=== PATIENT | female | born 1985 | race American Indian/Alaskan Native ===

== ENCOUNTER 2019-03-22 00:29 | Emergency (ER) | payer OTHER ==
[2019-03-22] MEDS ORDERED: IBUPROFEN PO ONE (03:03)
[2019-03-22] MEDS ORDERED: FLEXERIL PO ONE (03:04)
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
[2019-03-22 05:08] VITALS: BP 123/83
== END 2019-03-22 04:30 | disposition home or self-care (01) ==
LOC: ED 00:29
DX: S16.1XXA Strain of muscle, fascia and tendon at neck level, initial encounter (principal); M25.561 Pain in right knee; W22.10XA Striking against or struck by unspecified automobile airbag, initial encounter; Y93.89 Activity, other specified; Y92.410 Unspecified street and highway as the place of occurrence of the external cause; Y99.8 Other external cause status
CPT/HCPCS: 72040